=== PATIENT | male | born 1950 | race Caucasian/White ===

== ENCOUNTER 2018-09-07 06:39 | Emergency (ER) | payer MEDICARE, OTHER ==
[2018-09-07] MEDS: LIDOCAINE 2% 20 ML UROJET SYRINGE MM (07:15)
[2018-09-07 07:28] LABS: URINE BLOOD (Dip) POC 3+ (NEGATIVE); URINE GLUCOSE (Dip) POC Negative (NEGATIVE); URINE KETONES (Dip) POC 1+ (NEGATIVE); URINE LEUKOCYTE EST (Dip) POC 3+ (NEGATIVE); URINE NITRITE (Dip) POC Positive (NEGATIVE); URINE TOTAL PROTEIN POC 3+ (NEGATIVE)
== END 2018-09-07 08:22 | disposition home or self-care (01) ==
LOC: E/R 06:39
DX: N30.01 Acute cystitis with hematuria (principal)
CPT/HCPCS: 81003; 87086; 99283